=== PATIENT | female | born 1990 | race Two or more races ===

== ENCOUNTER 2021-10-13 00:29 | Emergency (ER) | payer SELFPAY ==
[~2021-10-13] VITALS: Ht 160 cm; Wt 50.0 kg
[2021-10-13] MEDS ORDERED: ONDANSETRON HCL 4 MG TABLET PO ONE (01:30)
[2021-10-13] MEDS ORDERED: ACETAMINOPHEN 325 MG TABLET PO ONE (02:45)
[2021-10-13 04:15] LABS: COVID AG,FIA SOURCE NASOPHARYNGEAL
[2021-10-13 04:33] LABS: INFLUENZA TYPE A NEGATIVE FOR TYPE A (NEGATIVE); INFLUENZA TYPE B NEGATIVE FOR TYPE B (NEGATIVE)
[2021-10-13 05:03] LABS: BASOPHILS % (AUTO) 0.1 % (0.0-2.0); EOSINOPHILS % (AUTO) 0.1 % (1.0-6.0); HEMATOCRIT 37.7 % (36-46); HEMOGLOBIN 12.9 g/dL (12.0-16.0); LYMPHOCYTES # (AUTO) 0.3 K/uL (1.0-4.8); LYMPHOCYTES % (AUTO) 2.8 % (22.0-44.0); MEAN CORPUSCULAR HEMOGLOBIN 28.6 pg (26.0-34.0); MEAN CORPUSCULAR HGB CONC 34.3 G/dL (31.0-37.0); MEAN CORPUSCULAR VOLUME 83 fL (80-100); MONOCYTES # (AUTO) 0.4 K/uL (0.1-1.0); MONOCYTES % (AUTO) 3.7 % (2.0-9.0); NEUTROPHILS # (AUTO) 9.2 K/uL (1.8-7.7); PLATELET COUNT (AUTO) 281 K/uL (150-450); RED BLOOD CELL COUNT(AUTO) 4.53 MIL/uL (4.00-5.20); RED CELL DISTRIBUTION WIDTH 14.1 % (11.5-14.5)
[2021-10-13 05:12] LABS: ANION GAP 9 mmol/L (8-16); CALCIUM, TOTAL 8.8 mg/dL (8.8-10.5); CARBON DIOXIDE 27 mmol/L (22-29); CHLORIDE 103 mmol/L (98-107); CREATININE 0.84 mg/dL (0.60-1.30); GLOMERULAR FILTR. RATE CALC > 60 mL/min (>60); GLUCOSE,RANDOM 146 mg/dL (70-110); NEUTROPHILS % (AUTO) 93.3 % (40.0-70.0); SODIUM SERUM 139 mmol/L (136-145); UREA NITROGEN, BLOOD 18 mg/dL (7-18)
[2021-10-13 05:24] LABS: ALANINE AMINOTRANSFERASE 29 U/L (12-78); ALBUMIN 3.9 g/dL (3.4-5.0); ALKALINE PHOSPHATASE 86 U/L (46-116); ASPARTATE AMINOTRANSFERASE 23 U/L (15-37); BILIRUBIN,TOTAL 1.4 mg/dL (0.1-1.0); HCG,QUANTITATIVE 1 mIU/mL (0-6); TOTAL PROTEIN, SERUM 7.3 g/dL (6.4-8.2)
[2021-10-13] MEDS ORDERED: FAMOTIDINE 10 MG/ML 2 ML VIAL IVP ONE (05:30)
[2021-10-13] MEDS ORDERED: ONDANSETRON HCL 4 MG/2 ML VIAL IVP ONE (05:30)
[2021-10-13] MEDS ORDERED: SODIUM CHLORIDE 0.9% 1,000 ML IV ONE (05:30)
[2021-10-13 08:25] VITALS: BP 95/45
[2021-10-14 06:06] LABS: HEPATITIS C AB (EIA) <0.1 s/co ratio (0.0-0.9)
== END 2021-10-13 08:43 | disposition home or self-care (01) ==
LOC: EMS 00:29
DX: K52.9 Noninfective gastroenteritis and colitis, unspecified (principal); Z20.822 Contact with and (suspected) exposure to COVID-19
CPT/HCPCS: 36415; 80053; 80074; 84702; 85025; 87426; 87804; 96361; 96374; 96375; 99284; J2405; J3490; J7030; Q0162; U0003

== ENCOUNTER 2022-04-30 10:29 | Emergency (ER) | payer MEDICAID, OTHER, SELFPAY ==
[~2022-04-30] VITALS: Ht 157.5 cm; Wt 54.0 kg
[2022-04-30] MEDS ORDERED: PERTUSS(ACELL),DIPH,TET VAC/PF 0.5 ML SYRINGE IM. ONE (12:45)
[2022-04-30] MEDS ORDERED: IBUPROFEN 600 MG TABLET PO ONE (12:45)
[2022-04-30] MEDS ORDERED: CEPH-558 PO (13:24)
[2022-04-30] MEDS ORDERED: DOXY-354 PO (13:25)
[2022-04-30] MEDS ORDERED: IBUP-2070 PO (13:26)
[2022-04-30 14:01] VITALS: BP 112/61
== END 2022-04-30 14:02 | disposition home or self-care (01) ==
LOC: EMS 10:29
DX: T63.511A Toxic effect of contact with stingray, accidental (unintentional), initial encounter (principal); Y92.89 Other specified places as the place of occurrence of the external cause
CPT/HCPCS: 90471; 90715; 99283